=== PATIENT | male | born 1935 | race Caucasian/White ===

== ENCOUNTER → 2018-04-15 | Outpatient (CLI) | payer OTHER | LOC: FIMAGING 12:16 | PROVIDERS: ATTEND Family Medicine | DX: K42.9 Umbilical hernia without obstruction or gangrene (principal); K46.9 Unspecified abdominal hernia without obstruction or gangrene; Z87.19 Personal history of other diseases of the digestive system ==

== ENCOUNTER 2018-05-07 05:28 | Observation (INO) | payer OTHER ==
[2018-05-07] MEDS ORDERED: ceFAZolin 2 GM/DEXTROSE 100 ML IV ONE (05:42)
[2018-05-07] MEDS ORDERED: LR 1,000 ML IV ONE (05:45)
--- NOTE | 2018-05-07 06:31 | PDHPUP ---
History & Physical Update H&P update statement: This history and physical update is based on an assessment of the patient which was completed after admission or registration (within 24 hours), but prior to the surgery/procedure. H&P update: H&P reviewed & patient examined, no change in patient's condition since H&P completed
[2018-05-07] MEDS ORDERED: BUPIVACAINE/EPI 0.5% 30 ML SDV ONE (06:46)
[2018-05-07] MEDS ORDERED: IPRATROPIUM/ALBUTEROL 3 ML DEYVIAL IH ONE (06:54)
--- NOTE | 2018-05-07 06:58 | PDANEPAE ---
ANE History of Present Illness umbilical hernia here for repair w robot ANE Past Medical History - Cardiovascular History Hx Hypertension: Yes Hx Arrhythmias: No Hx Chest Pain: No Hx Coronary Artery / Peripheral Vascular Disease: No Hx CHF / Valvular Disease: No Hx Palpitations: No Cardiovascular History Comment: PAC'S. 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 - Pulmonary History Hx COPD: No Hx Asthma/Reactive Airway Disease: Yes Hx Recent Upper Respiratory Infection: No Hx Oxygen in Use at Home: Yes O2 in Use at Home (L/minute): NOC O2 @ 2L Hx Sleep Apnea: No Sleep Apnea Screening Result - Last Documented: Negative - Neurologic History Hx Cerebrovascular Accident: No Hx Seizures: No Hx Dementia: No - Endocrine History Hx Diabetes: No Endocrine History Comment: HYPOTHYROID - Renal History Hx Renal Disorders: No Renal History Comment: BPH - Liver History Hx Hepatic Disorders: No - Neurological & Psychiatric Hx Hx Neurological and Psychiatric Disorders: No - Cancer History Hx Cancer: No Cancer History Comment: NEVUS PRECACEROUS - Congenital Disorder History Hx Congenital Disorders: No - GI History Hx Gastrointestinal Disorders: No - Other Health History Other Health History: ECZEMA OCCAS - Chronic Pain History Chronic Pain: No - Surgical History Prior Surgeries: TONSILLECTOMY/ADENOIDECTOMY. ROYCE ING HERNIA. UMB HERNIA. BRONCHOSCOPY. OPEN LUNG BX. PROSTATE SURG REDUCTION. CATARACTS ANE Review of Systems Review of Systems: - Exercise capacity METS (RN): 5 METS ANE Patient History - Allergies Allergies/Adverse Reactions: Sulfa (Sulfonamide Antibiotics) Allergy (Verified 01/12/14 16:55) - Home Medications Home Medications: Advair 100/50 (RX) 01/12/14 [Last Taken 05/07/18] Alvesco 01/12/14 [Last Taken 05/07/18] Nasonex 01/12/14 [Last Taken 05/06/18] Synthroid 01/12/14 [Last Taken 05/06/18] ZYFLO 01/12/14 [Last Taken 05/06/18] Zyrtec 01/12/14 [Last Taken 05/05/18] Herbals/Supplements -Info Only 05/01/18 [Last Taken 05/02/18] Lisinopril 05/01/18 [Last Taken 05/06/18] Albuterol 5 mg/ml INH 05/07/18 [Last Taken 05/07/18] - NPO status NPO Status: no food or drink >8 hours NPO Since - Liquids (Date): 05/06/18 NPO Since - Liquids (Time): 20:00 NPO Since - Solids (Date): 05/06/18 NPO Since - Solids (Time): 18:00 - Anes Hx Anes Hx: no prior problems - Smoking Hx Smoking Status: Never smoked - Alcohol Use Alcohol Use: Rarely - Family Anes Hx Family Anes Hx: none ANE Labs/Vital Signs - Vital Signs Height: 167.64 cm Weight: 71.214 kg ANE Physical Exam - Airway Neck exam: FROM Mallampati Score: Class 2 Mouth exam: normal dental/mouth exam - Pulmonary Pulmonary: no respiratory distress, clear to auscultation - Cardiovascular Cardiovascular: regular rate and rhythym, no murmur, rub, or gallop - ASA Status ASA Status: III ANE Anesthesia Plan Anesthesia Plan: general endotracheal anesthesia
[2018-05-07] MEDS ORDERED: PROPOFOL 200 MG/20 ML VIAL ONE (07:02)
[2018-05-07] MEDS ORDERED: fentaNYL 100 MCG/2 ML INJ ONE ×2 (07:02→08:31)
[2018-05-07] MEDS ORDERED: ROCURONIUM 50 MG/5 ML VIAL ONE (07:03)
[2018-05-07] MEDS ORDERED: LIDOCAINE 2% 100 MG/5 ML SYR ONE (07:03)
[2018-05-07] MEDS ORDERED: IPRATROPIUM/ALBUTEROL 3 ML DEYVIAL ONE (07:04)
[2018-05-07] MEDS ORDERED: ONDANSETRON 4 MG/2 ML VIAL IVP PRN (07:58)
[2018-05-07] MEDS ORDERED: oxyCODONE IR 5 MG TAB PO PRN (07:58)
[2018-05-07] MEDS ORDERED: HYDROCODONE/APAP 5/325 TAB PO PRN (07:58)
[2018-05-07] MEDS ORDERED: ALBUTEROL 3 ML DEYVIAL IH PRN (07:58)
[2018-05-07] MEDS ORDERED: ACETAMINOPHEN 500 MG TAB PO PRN (07:58)
[2018-05-07] MEDS ORDERED: NALOXONE HCL 0.4 MG/ML INJ IVP PRN (07:58)
[2018-05-07] MEDS ORDERED: PROMETHAZINE HCL 25 MG/ML INJ IVP PRN (07:58)
--- NOTE | 2018-05-07 08:32 | POSTOPPROG ---
Post Op Note Date of Operation: 05/07/18 Surgeon: Edwin Aranda Woodworker: CLIFF Smith Anesthesiologist: Nancy Anesthesia: GET(General Endotracheal) Pre-op Diagnosis: recurrent ventral hernia Post-op Diagnosis: same Procedure: robotic assisted ventral hernia repair with mesh Findings: small 1cm defect, L lat portion of previous repair. 9cm Symbotex Inf/Abcess present in the surg proc area at time of surgery?: No EBL: Minimal
--- NOTE | 2018-05-07 08:46 | POSTANESTH ---
Post Anesthetic Evaluation Cardiovascular Status: Normal, Stable, Similar to Pre-Op Cond Respiratory Status: Normal, Stable, Similar to Pre-op Cond. Level of Consciousness/Mental Status: Can Participate in Eval, Alert and Oriented Pain Control: Adequate, Prn Tx Ordered Nausea/Vomiting Control: Adequate, Prn Tx Ordered Complications Possibly Related to Anesthesia: None Noted
--- NOTE | 2018-05-07 09:22 | GOP ---
[f rep st] OPERATIVE REPORT DATE OF OPERATION: 05/07/2018 SURGEON: Edwin Aranda MD SERVICE BAR CASHIER: Virginia Romano CFA. ANESTHESIA: General endotracheal. ANESTHESIOLOGIST: Dr. Serge Cruz PREOPERATIVE DIAGNOSIS: Recurrent ventral hernia. POSTOPERATIVE DIAGNOSIS: Recurrent ventral hernia. PROCEDURE PERFORMED: Robotic assisted ventral hernia repair with mesh. FINDINGS: Small centimeter defect on the left lateral portion of the patient's previous repair. Thi s was successfully imbricated with an 0 Stratafix suture and covered with a 9 cm covered Symbotex mes h. SPECIMENS: None. ESTIMATED BLOOD LOSS: 5 cc. DESCRIPTION OF PROCEDURE: The patient was greeted in the preoperative suite. Once again, risks, prince efits, and alternatives were discussed. Consent was signed. He was then brought back to the operati ve suite, placed on the OR table in a supine position. After all anesthesia machines, including SCDs were on and functioning, a World Health Organization time-out was performed. After successful induc tion of general anesthesia, the patient's abdomen was prepped and draped in typical sterile fashion. I commenced the procedure by making a right upper quadrant cutdown through which the Veress needle wa s passed I achieved pneumoperitoneum to 15 mmHg, which was well tolerated by the patient. Through th is, I inserted an 8 mm port. Once successfully in the abdomen, I placed 2 additional 8 mm trocars, 1 in the right lateral, 1 in the right lower quadrant. The robot was then successfully docked. I identified a fat containing hernia on the left lateral portion of the patient's previous repair. I t does not appear as though mesh was utilized for this repair as it was not visible. I successfully repaired the defect using a 0 Stratafix suture noting excellent fascial reapproximation. I then cove red this with a covered 9 cm Symbotex mesh running it along the fascia with a 2-0 V-Loc suture. The mesh was well adhered to the peritoneal wall. There were some loose fatty adhesions, which were succ essfully taken down and removed. I then inspected the visible viscera. The liver, stomach, small bowel, and colon, which were visible to me, all appeared to be normal. I removed my ports, evacuated my pneumoperitoneum. The skin was closed with interrupted Monocryl, over which Dermabond was placed. The patient was then extubated in the operative suite and taken to the PACU in satisfactory condition. DRAINS: None. COUNTS: All counts were reported as correct x2. /[id number]/MODL
[2018-05-07] MEDS: fentaNYL 100 MCG/2 ML INJ IVP PRN ×2 (10:01→10:09)
[2018-05-07] MEDS ORDERED: oxyCODONE IR 5 MG TAB ONE (10:13)
[2018-05-07] MEDS ORDERED: HYDROmorphONE/DILAUDID 1 MG/ML INJ IVP PRN (12:47)
[2018-05-07] MEDS ORDERED: ACETAMINOPHEN 325 MG TAB PO PRN (12:47)
[2018-05-07] MEDS: oxyCODONE IR 5 MG TAB PO PRN ×2 (14:18→17:01)
[2018-05-07] MEDS ORDERED: ONDANSETRON DISINTEGRATING 4 MG TAB PO PRN (15:24)
[2018-05-07] MEDS: IBUPROFEN 600 MG TAB PO SCH ×2 (15:39→21:01)
--- NOTE | 2018-05-07 16:48 | ASMTCMCOM ---
CM Note CM Note Notes: Chart reviewed for discharge planning purposes. 82 year old male s/p umbilical hernia repair. Plan of care unclear at this time. Plan: TBD Date Signed: 05/07/2018 04:47 PM Electronically Signed By:Luz Rush RN
[2018-05-07] MEDS ORDERED: CETIRIZINE 10 MG TAB PO SCH (18:00)
[2018-05-07] MEDS: ONDANSETRON DISINTEGRATING 4 MG TAB PO PRN (18:48)
[2018-05-07] MEDS: ZILEUTON 600 MG PO SCH ×3 (19:19→22:35)
[2018-05-07] MEDS: ADVAIR IH SCH (20:32)
[2018-05-07] MEDS: CICLESONIDE IH SCH (20:32)
[2018-05-07] MEDS: ALBUTEROL 60 PUFFS/8 GM MDI IH PRN (20:33)
[2018-05-07] MEDS ORDERED: MOMETASONE FUROATE NASAL SCH (21:00)
[2018-05-08] MEDS: oxyCODONE IR 5 MG TAB PO PRN (04:01)
[2018-05-08] MEDS: ALBUTEROL 60 PUFFS/8 GM MDI IH PRN ×2 (04:27→08:57)
[2018-05-08] MEDS: ONDANSETRON DISINTEGRATING 4 MG TAB PO PRN (04:27)
[2018-05-08 07:48] VITALS: BP 117/87
[2018-05-08] MEDS: IBUPROFEN 600 MG TAB PO SCH (07:49)
[2018-05-08] MEDS: ADVAIR IH SCH (08:58)
[2018-05-08] MEDS: CICLESONIDE IH SCH (08:58)
--- NOTE | 2018-05-08 09:31 | ASDISCHSUM ---
Discharge Information Plan Status:Home with No Needs Medically Cleared to Leave: Discharge Date: CM D/C Disposition:Home, Routine, Self-Care ADT D/C Disposition:Home, Routine, Self-Care Projected Discharge Date:05/08/2018 12:00 AM Transportation at D/C:Family Discharge Delay Reason: Follow-Up Date:05/08/2018 12:00 AM Discharge Slot: Final Diagnosis: Placement Information Patient Contact Information Contact Name:JONATHAN Relationship: Address:[address] Work Phone: City:[facility] Phone: [facility]/Zip Code:[place] [address] Email: Financial Information Financial Class:Medicare Advantage Plans Primary Plan Desc:[facility] ADVANTAGE PLANS Primary Plan Number:[id number] Secondary Plan Desc: Secondary Plan Number: Assessment Information [facility] CM Progress Note CM Note CM Note Notes: Chart reviewed for discharge planning purposes. 82 year old male s/p umbilical hernia repair. Plan of care unclear at this time. Plan: TBD Date Signed: 05/07/2018 04:47 PM Electronically Signed By:Luz Rush RN LACE LACE Length of stay for Answers: 2 days current admission Acuity / Level of Answers: No Care: Did the patient have an inpatient admission? Comorbidities - select Answers: Other Notes: HTN; Hypothyroid all that apply # of Emergency department Answers: 0 visits in the last 6 months Score: 3 Date Signed: 05/08/2018 09:29 AM Electronically Signed By:PARRISH Jaffe Case Management Discharge Plan Note Case Management Discharge Discharge Order Complete? Answers: Yes Patient to Obtain Answers: via Family Medications Transportation Arranged Answers: Family/Friends Discharge Comments Notes: CM spoke with RN, pt discharged independently. Family to transport. Date Signed: 05/08/2018 09:28 AM Electronically Signed By:PARRISH Jaffe Intervention Information
[2018-05-08] MEDS: ZILEUTON 600 MG PO SCH (09:36)
--- NOTE | 2018-05-08 10:01 | SOAPPROG ---
SOAP Progress Note Assessment/Plan: Assessment/Plan: 82 Y M s/p robotic VH repair. Doing well. Minimal pain. Tolerating diet. No N/V. Wounds intact. AFVSS. Dc to home. alert, nad no wob rrr abd soft, inc cdi 05/08/18 10:00 Objective: Vital Signs Temp Pulse Resp BP Pulse Ox 36.6 C 82 16 117/87 H 91 L 05/08/18 07:44 05/08/18 09:02 05/08/18 09:02 05/08/18 07:44 05/08/18 09:02 05/07/18 05/08/18 05/09/18 05:59 05:59 05:59 Intake Total 1909 Output Total 10 Balance 190 ICD10 Worksheet Patient Problems: Problems Problem Status Onset Recurrent ventral hernia Acute - ICD10 Problem Qualifiers (1) Recurrent ventral hernia
[2018-05-08] MEDS ORDERED: LEVOTHYROXINE 75 MCG TAB PO SCH (15:00)
[2018-05-08] MEDS ORDERED: LISINOPRIL 40 MG TAB PO SCH (15:00)
== END 2018-05-08 12:15 | disposition home or self-care (01) ==
LOC: FSGY 05:28 → F3E 12:48 → F1N 14:56
PROVIDERS: ADMIT Surgery; ATTEND Surgery
DX: K43.2 Incisional hernia without obstruction or gangrene (principal); J45.909 Unspecified asthma, uncomplicated; I10 Essential (primary) hypertension; E03.9 Hypothyroidism, unspecified
CPT/HCPCS: 49653; C1781; G0378; J0690; J1170; J2001; J2704; J3010

== ENCOUNTER 2018-07-05 09:39 | Observation (INO) | payer OTHER ==
[2018-07-05] MEDS ORDERED: LR 1,000 ML IV ONE (09:50)
[2018-07-05] MEDS ORDERED: ceFAZolin 2 GM/DEXTROSE 100 ML IV ONE (09:50)
--- NOTE | 2018-07-05 10:44 | PDANEPAE ---
ANE Past Medical History - Cardiovascular History Hx Hypertension: Yes Hx Arrhythmias: No Hx Chest Pain: No Hx Coronary Artery / Peripheral Vascular Disease: No Hx CHF / Valvular Disease: No Hx Palpitations: No Cardiovascular History Comment: PAC'S. 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 - Pulmonary History Hx COPD: No Hx Asthma/Reactive Airway Disease: Yes Hx Recent Upper Respiratory Infection: No Hx Oxygen in Use at Home: Yes O2 in Use at Home (L/minute): 2L at NOC Hx Sleep Apnea: No Sleep Apnea Screening Result - Last Documented: Negative - Neurologic History Hx Cerebrovascular Accident: No Hx Seizures: No Hx Dementia: No - Endocrine History Hx Diabetes: No Endocrine History Comment: HYPOTHYROID - Renal History Hx Renal Disorders: No Renal History Comment: BPH - Liver History Hx Hepatic Disorders: No - Neurological & Psychiatric Hx Hx Neurological and Psychiatric Disorders: No - Cancer History Hx Cancer: No 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 Multiple recurrent hernias, s/p multiple surgeries. Bilateral cataract surgeries. - Chronic Pain History Chronic Pain: No - Surgical History Prior Surgeries: Robotic Ventral Hernia Repair 04/2018. TONSILLECTOMY/ ADENOIDECTOMY 1952. ROYCE ING HERNIA 1977. UMB HERNIA 1994. BRONCHOSCOPY 1978. OPEN LUNG BX 1994. PROSTATE SURG REDUCTION 2006. CATARACTS R 11/2013, L 2016. Atypical nevus excision 07/2017 ANE Review of Systems Review of Systems: - Exercise capacity METS (RN): 4 METS ANE Patient History - Allergies Allergies/Adverse Reactions: Sulfa (Sulfonamide Antibiotics) Allergy (Verified 01/12/14 16:55) - Home Medications Home Medications: Advair 230/ 2 puffs IH BID 05/07/18 [Last Taken 07/04/18 1000] Albuterol [Ventolin Hfa Inhaler] 1 - 2 puffs IH Q4 PRN 05/07/18 [Last Taken Unknown] Albuterol [Ventolin Hfa Inhaler] 2 puffs IH BID@,18 05/07/18 [Last Taken 07/04 10:00] C/E/Zn/Cu/OM3/DHA/EPA/LUT/ZEAX [Preservision Areds 2 Softgel] 2 each PO BID [Last Taken 06/30/18] Cetirizine [ZyrTEC 10 mg (*)] 10 mg PO DAILY@18 05/07/18 [Last Taken 07/04/18 1800] Cholecalciferol Vit D3 [Vitamin D3 (*)] 1,000 units PO DAILY 05/07/18 [Last Taken 06/30/18] Ciclesonide [Alvesco] 2 puffs IH BID 05/07/18 [Last Taken 07/04/182229] Levothyroxine [Synthroid 75 mcg (*)] 75 mcg PO DAILY@05/07/18 [Last Taken 2099] Lisinopril [Zestril 40 mg (*)] 40 mg PO DAILY@05/07/18 [Last Taken 07/04/182099] Mometasone Furoate Nasal [Nasonex] 2 sprays NASAL HS 05/07/18 [Last Taken 190] Sodium Chloride [[place] Saline] 1 pari NS HS 05/07/18 [Last Taken 07/04/18 19:00] Zileuton [Zyflo Cr] 1,200 mg PO BIDAC 05/07/18 [Last Taken 07/04/18 190] - NPO status NPO Since - Liquids (Date): 07/05/18 NPO Since - Liquids (Time): 07:00 NPO Since - Solids (Date): 07/04/18 NPO Since - Solids (Time): 18:00 - Smoking Hx Smoking Status: Never smoked ANE Labs/Vital Signs - Vital Signs Blood Pressure: 154/94 Heart Rate: 82 Respiratory Rate: 15 O2 Sat (%): 96 Height: 167.64 cm Weight: 70.307 kg ANE Physical Exam - Airway Neck exam: FROM Mallampati Score: Class 2 Mouth exam: normal dental/mouth exam - Pulmonary Pulmonary: clear to auscultation - Cardiovascular Cardiovascular: regular rate and rhythym - ASA Status ASA Status: II, III ANE Anesthesia Plan Anesthesia Plan: general endotracheal anesthesia
[2018-07-05] MEDS ORDERED: LR 500 ML IV PRN ×2 (11:13→13:52)
[2018-07-05] MEDS ORDERED: ONDANSETRON 4 MG/2 ML VIAL IVP PRN ×3 (11:13→13:58)
[2018-07-05] MEDS ORDERED: ALBUTEROL 3 ML DEYVIAL IH PRN ×2 (11:13→13:52)
[2018-07-05] MEDS ORDERED: NALOXONE HCL 0.4 MG/ML INJ IVP PRN ×2 (11:13→13:52)
[2018-07-05] MEDS ORDERED: MEPERIDINE 25 MG/0.5 ML AMP IVP PRN ×2 (11:13→13:52)
[2018-07-05] MEDS ORDERED: HYDROmorphONE/DILAUDID 1 MG/ML INJ IVP PRN ×3 (11:13→13:58)
[2018-07-05] MEDS ORDERED: PROMETHAZINE HCL 25 MG/ML INJ IVP PRN ×2 (11:13→13:52)
[2018-07-05] MEDS ORDERED: fentaNYL 100 MCG/2 ML INJ IVP PRN ×2 (11:13→13:52)
[2018-07-05] MEDS ORDERED: PHENYLEPHRINE HCL 100 MCG/ML SYR IVP PRN (11:13)
[2018-07-05] MEDS ORDERED: METOCLOPRAMIDE 10 MG/2 ML VIAL IVP PRN ×2 (11:13→13:52)
[2018-07-05] MEDS ORDERED: BUPIVACAINE/EPI 0.5% 30 ML SDV ONE (12:15)
[2018-07-05] MEDS ORDERED: fentaNYL 100 MCG/2 ML INJ ONE ×4 (12:17→14:52)
[2018-07-05] MEDS ORDERED: PROPOFOL 200 MG/20 ML VIAL ONE (12:18)
[2018-07-05] MEDS ORDERED: LIDOCAINE 2% 100 MG/5 ML SYR ONE (12:33)
[2018-07-05] MEDS ORDERED: DEXAMETHASONE 4 MG/ML VIAL ONE (13:15)
[2018-07-05] MEDS ORDERED: ROCURONIUM 50 MG/5 ML VIAL ONE ×2 (13:15→13:24)
[2018-07-05] MEDS ORDERED: hydrALAZINE 20 MG/ML VIAL ONE (13:42)
[2018-07-05] MEDS ORDERED: ONDANSETRON 4 MG/2 ML VIAL ONE (13:43)
[2018-07-05] MEDS ORDERED: KETOROLAC 30 MG/1 ML SDV ONE (13:43)
[2018-07-05] MEDS ORDERED: LABETALOL HCL 5 MG/ML 20 ML MDV IVP PRN (13:52)
[2018-07-05] MEDS ORDERED: SUGAMMADEX SODIUM 200 MG/2 ML VIAL IVP ONE (13:52)
[2018-07-05] MEDS ORDERED: oxyCODONE IR 5 MG TAB PO PRN (13:58)
--- NOTE | 2018-07-05 13:59 | POSTOPPROG ---
Post Op Note Date of Operation: 07/05/18 Surgeon: Ewdin Aranda Dry Placer Machine Operator: CLIFF Smith Anesthesiologist: Amairani Anesthesia: GET(General Endotracheal) Pre-op Diagnosis: Bilateral inguinal hernias Post-op Diagnosis: same Procedure: Robot assisted bilateral inguinal hernia repair with mesh Findings: R: large direct, L large indirect Inf/Abcess present in the surg proc area at time of surgery?: No EBL: Minimal
[2018-07-05] MEDS ORDERED: D5W 1/2 NS W/ 20 KCl/L 1,000 ML IV SCH (14:00)
[2018-07-05] MEDS: IBUPROFEN 600 MG TAB PO SCH ×2 (15:38→20:53)
[2018-07-05] MEDS: CICLESONIDE IH SCH (20:47)
[2018-07-05] MEDS: ZILEUTON 600 MG PO SCH (20:48)
[2018-07-05] MEDS: ALBUTEROL 60 PUFFS/8 GM MDI IH SCH ×2 (20:48→21:00)
[2018-07-05] MEDS: ADVAIR IH SCH (20:49)
[2018-07-05] MEDS: TEARS/DEXTRAN 70/HYPROMELLOSE 15 ML OPHT.BTL EACHEYE SCH ×2 (20:55→21:00)
[2018-07-05] MEDS: PRESERVISION AREDS2 FORMULA EYE VIT 1 EACH PO SCH (20:55)
[2018-07-05] MEDS ORDERED: SODIUM CL NASAL 45 ML BTL NS SCH (21:00)
[2018-07-06] MEDS: ACETAMINOPHEN 325 MG TAB PO PRN ×3 (00:43→10:29)
[2018-07-06] MEDS: IBUPROFEN 600 MG TAB PO SCH (06:25)
[2018-07-06 08:08] VITALS: BP 113/71
[2018-07-06] MEDS: CICLESONIDE IH SCH (08:40)
[2018-07-06] MEDS: ADVAIR IH SCH (08:40)
[2018-07-06] MEDS: ALBUTEROL 60 PUFFS/8 GM MDI IH SCH (08:41)
[2018-07-06] MEDS ORDERED: MOMETASONE FUROATE NASAL SCH (09:00)
[2018-07-06] MEDS ORDERED: CHOLECALCIFEROL VIT D3 1,000 UNITS TAB PO SCH (09:00)
[2018-07-06] MEDS: PRESERVISION AREDS2 FORMULA EYE VIT 1 EACH PO SCH (09:43)
[2018-07-06] MEDS: ZILEUTON 600 MG PO SCH (10:29)
--- NOTE | 2018-07-06 13:00 | PDDCSUM ---
Discharge Summary Discharge Summary: DISCHARGE SUMMARY Date of Admission July 05 Date of Discharge July 06 DISCHARGE DIAGNOSES -bilateral inguinal hernias HOSPITAL COURSE The patient was admitted and taken to the operating room where he underwent uneventful robotic assisted bilateral inguinal hernia repair with mesh. They were subsequently taken to the PACU and then the general medical floor. The hospital course was uneventful, their diet was advanced to a regular diet which was well tolerated and their pain was well controlled. They were discharged home in stable condition on afternoon of the DISCHARGE MEDICATIONS Oxycodone as needed for pain DISPOSITION Home FOLLOW UP Follow up with me in the office in 10-14 days for a general post-operative visit
--- NOTE | 2018-07-06 13:01 | ASDISCHSUM ---
Discharge Information Plan Status:Home with No Needs Medically Cleared to Leave:07/06/2018 Discharge Date:07/06/2018 CM D/C Disposition:Home, Routine, Self-Care ADT D/C Disposition:Home, Routine, Self-Care Projected Discharge Date:07/06/2018 Transportation at D/C:Family Discharge Delay Reason: Follow-Up Date:07/06/2018 Discharge Slot: Final Diagnosis: Placement Information Patient Contact Information Contact Name:JONATHAN Relationship: Address:[address] Work Phone: [facility] Phone: State/Zip Code:[place] [address] Email: Financial Information Financial Class:Medicare Advantage Plans Primary Plan Desc:[facility] ADVANTAGE PLANS Primary Plan Number:[id number] Secondary Plan Desc: Secondary Plan Number: Assessment Information LACE LACE Length of stay for Answers: Less than 1 day current admission Acuity / Level of Answers: No Care: Did the patient have an inpatient admission? Comorbidities - select Answers: Other Notes: asthma, BPH, HTN, SAGAR all that apply # of Emergency department Answers: 0 visits in the last 6 months Score: 1 Date Signed: 07/06/2018 12:59 PM Electronically Signed By:GEOVANNY Child Case Management Discharge Plan Note Case Management Discharge Discharge Order Complete? Answers: Yes Patient to Obtain Answers: via Family Medications Transportation Arranged Answers: Family/Friends Discharge Comments Notes: Pt is s/p a planned bilateral hernia repair. He is medically cleared for d/c home today. He is discharging with no CM needs. Date Signed: 07/06/2018 01:00 PM Electronically Signed By:GEOVANNY Child Intervention Information
[2018-07-06] MEDS ORDERED: LISINOPRIL 40 MG TAB PO SCH (15:00)
[2018-07-06] MEDS ORDERED: LEVOTHYROXINE 75 MCG TAB PO SCH (15:00)
[2018-07-06] MEDS ORDERED: CETIRIZINE 10 MG TAB PO SCH (18:00)
--- NOTE | 2018-07-07 21:12 | GOP ---
[f rep st] OPERATIVE REPORT DATE OF OPERATION: 07/05/2018 SURGEON: Edwin Aranda MD SURVEY SUPERINTENDENT: Virginia Romano CFA ANESTHESIA: General endotracheal. ANESTHESIOLOGIST: Adore Bales MD. PREOPERATIVE DIAGNOSIS: Bilateral inguinal hernias. POSTOPERATIVE DIAGNOSIS: Bilateral inguinal hernias. PROCEDURE PERFORMED: Robotic assisted bilateral inguinal hernia repair with mesh. FINDINGS: Right side had a large direct defect. Left side had a large indirect defect. Both succes sfully skeletonized and repaired with Bard 3D Light site-specific mesh. SPECIMENS: None. ESTIMATED BLOOD LOSS: 10 cc. DESCRIPTION OF PROCEDURE: The patient was greeted in the preoperative suite. Once again, risks, prince efits, and alternatives were discussed. Consent was signed. He was then brought back to the operati ve suite, placed on the OR table in supine position. After all anesthesia machines including SCDs we re on and functioning, World Health Organization time-out was performed. After successful induction of general anesthesia, a Lainez catheter was successfully placed and the patient's abdomen was prepped and draped in typical sterile fashion. I commenced the procedure by making a supraumbilical cutdown through which the Veress needle was passed I achieved pneumoperitoneum to 15 mmHg, which was well to lerated by the patient I then inserted an 8 mm port into this site. Once successfully in the abdomen , I placed 2 additional 8 mm trocars, 1 in the left, 1 in the right upper quadrant, all under direct visualization. There were minimal to no adhesions from his previous ventral hernia repair which was done 2 months prior. The patient was placed in gentle Trendelenburg position. I turned my attention toward the patient's right groin. Initially, I scored the peritoneal defect from just adjacent to t he ASIS all the way medial to the pubic tubercle. I then skeletonized this area all the way down to the visceral sac including cord structures there was a large direct defect which was successfully ske letonized and reduced. I found no other significant findings. A Bard 3D Light right side large mesh was then brought in. It was attached to Karlos ligament, as well as on either side of the inferior epigastric vessels and allowed to lie flat without any appropriate kinks. The peritoneal defect was then closed with a running V-Loc suture. In the exact same fashion on the left side I scored the per itoneum from the ASIS all the way medial to the pubic tubercle. On this side, there was a moderate-s ized indirect defect. The cord structures were successfully skeletonized. I found no other signific ant findings. In the same fashion, I brought in a Bard 3D Light left-sided mesh. It was attached to the Karlos ligament, as well as on either side of the inferior epigastric vessels. It was allowed t o lie flat without any kinks. The peritoneal defect was closed with a running V-Loc suture. I then interrogated the remainder of the abdomen. I found no other significant findings. Local anesthesia was infiltrated into the port sites which were then withdrawn under direct visualization I evacuated my pneumoperitoneum. The port sites were closed with interrupted Monocryl. Dermabond was placed. T he patient was then extubated in the operative suite and taken to PACU in satisfactory condition. DRAINS: None. INSTRUMENT COUNT: All counts were reported as correct x2. /[id number]/MODL
--- NOTE | 2018-07-08 08:17 | POSTANESTH ---
Post Anesthetic Evaluation Cardiovascular Status: Normal, Stable Respiratory Status: Normal, Stable Level of Consciousness/Mental Status: Can Participate in Eval Pain Control: Adequate, Prn Tx Ordered Nausea/Vomiting Control: Adequate, Prn Tx Ordered Complications Possibly Related to Anesthesia: None Noted
== END 2018-07-06 13:14 | disposition home or self-care (01) ==
LOC: FSGY 09:39 → F3E 13:59
PROVIDERS: ADMIT Surgery; ATTEND Surgery
PROC: 8E094CZ Robotic Assisted Procedure of Head and Neck Region, Percutaneous Endoscopic Approach (ICD-10-PCS; principal; 2018-07-05 11:30)
PROC: 0YUA4JZ Supplement Bilateral Inguinal Region with Synthetic Substitute, Percutaneous Endoscopic Approach (ICD-10-PCS; principal; 2018-07-05 11:30)
DX: K40.20 Bilateral inguinal hernia, without obstruction or gangrene, not specified as recurrent (principal); I44.0 Atrioventricular block, first degree; E03.9 Hypothyroidism, unspecified; N40.0 Benign prostatic hyperplasia without lower urinary tract symptoms
CPT/HCPCS: 49650; C1781; G0378; J0360; J0690; J1100; J1885; J2001; J2405; J2704; J3010